=== PATIENT | male | born 1980 | race Caucasian/White ===

== ENCOUNTER 2017-01-11 20:10 | Emergency (ER) | payer OTHER ==
--- NOTE | ~2017-01-11 | CR94 ---
[facility] A Service of [facility] RADIOLOGY TEXT RESULTS PATIENT: SUREKHA CAMARENA LOCATION: SED : 82 UNIT #: [id number] AGE: [address]: HEAVEN [place] SEX: M ORDER DR: [id number] [place] [id number] E MR#: [id number] Acc #: [id number] NAME: SUREKHA CAMARENA. : 1980 SEX: M STUDY DATE/TIME: 01/11/2017 20:46 UNIT: SED ROOM: STUDY DESCRIPTION: CR Elbow Min 3 Views Rt Attending Physician: (Basil) Heaven Louis Referring Physician: Alex Tate M.D. Ordering Physician: Armani) Heaven Louis Primary Care Physician: No Primary Care Physician MEDICAL IMAGING REPORT This report is preliminary unless electronic signature is present. EXAM Right elbow, 3 views. HISTORY Elbow pain, elbow popped this morning. FINDINGS Three views of the right elbow demonstrates no fracture, dislocation, arthritic or inflammatory change. Small amount of degenerative ossification off the olecranon. No joint effusion. IMPRESSION Negative right elbow. Dictated by... Mc Florian M.D. THIS IS AN ELECTRONICALLY VERIFIED REPORT Mc Florian M.D. at 01/12/2017 9:16 PM Delia TD: 01/11/2017 23:31 JOB #: [id number] MEDICAL IMAGING REPORT Page 1 of 1
[~2017-01-11 20:10] MED LIST: ALLEGRA; IBUPROFEN; PANTOPRAZOLE SO40 MG PO
[2017-01-11] MEDS ORDERED: PRINIVIL10 MG (20:27)
== END 2017-01-11 21:56 | disposition home or self-care (01) ==
LOC: SED 20:10
DX: S53.401A Unspecified sprain of right elbow, initial encounter (principal); I10 Essential (primary) hypertension; X58.XXXA Exposure to other specified factors, initial encounter; Y92.69 Other specified industrial and construction area as the place of occurrence of the external cause; Y99.0 Civilian activity done for income or pay
CPT/HCPCS: 29260; 73080; 99283